=== PATIENT | female | born 1995 | race Caucasian/White ===

== ENCOUNTER 2018-10-17 20:46 | Emergency (ER) | payer SELFPAY ==
[2018-10-17] MEDS ORDERED: DEXAMETHASONE 4 MG/ML VIAL ONE (21:48)
[2018-10-17] MEDS ORDERED: DIPHENHYDRAMINE 50 MG/ML VIAL ONE (21:48)
[2018-10-17] MEDS ORDERED: FAMOTIDINE 20 MG/2 ML VIAL IV ONE (21:49)
[2018-10-17] MEDS ORDERED: NA CHLORIDE 0.9% 1,000 ML ONE (21:49)
--- NOTE | 2018-10-17 22:57 | ER ---
Nurse's Notes [facility] Name: Meagan Graff Age: 23 yrs Sex: Female : 1995 Arrival Date: 10/17/2018 Time: 20:49 Bed 15 Private MD: Diagnosis: Rash and other nonspecific skin eruption Presentation: 10/17 20:57 Presenting complaint: Patient states: rash and hives since yesterday morning. pt c/o ak1 body aches and throat pain today. Transition of care: patient was not received from another setting of care. Onset of symptoms was October 16, 2018. Risk Assessment: Do you want to hurt yourself or someone else? Patient reports no desire to harm self or others. Initial Sepsis Screen: Does the patient meet any 2 criteria? No. Patient's initial sepsis screen is negative. Does the patient have a suspected source of infection? No. Patient's initial sepsis screen is negative. Care prior to arrival: Benadryl at 1100. 20:57 Method Of Arrival: Ambulatory ak1 20:57 Acuity: DEVORAH 4 ak1 Triage Assessment: 20:56 General: Appears in no apparent distress. Behavior is calm, cooperative. Pain: ak1 Complains of pain in boday aches. 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 - Social history:: Smoking status: Patient uses tobacco products, smokes one-half pack cigarettes per day. - Ebola Screening: : No symptoms or risks identified at this time. Screenin:59 Abuse screen: Denies threats or abuse. Denies injuries from another. Nutritional ak1 screening: No deficits noted. Tuberculosis screening: No symptoms or risk factors identified. Fall Risk None identified. Assessment: 21:20 General: Appears in no apparent distress. uncomfortable, Behavior is calm, cooperative, jb4 appropriate for age. Pain: Complains of pain in right foot and left foot Pain does not radiate. Pain currently is 6 out of 10 on a pain scale. Neuro: Level of Consciousness is awake, alert, obeys commands, Oriented to person, place, time, situation. Cardiovascular: Heart tones S1 S2 present. Respiratory: Airway is patent Respiratory effort is even, unlabored, Respiratory pattern is regular, symmetrical. GI: No signs and/or symptoms were reported involving the gastrointestinal system. : No signs and/or symptoms were reported regarding the genitourinary system. EENT: Throat is clear is reddened. Derm: Skin is intact, Skin is pink, warm \T\ dry. Rash noted that is itchy, red, raised, urticaria. Musculoskeletal: Circulation, motion, and sensation intact. 22:18 Reassessment: Patient appears in no apparent distress at this time. Patient and/or jb4 family updated on plan of care and expected duration. Pain level reassessed. Patient is alert, oriented x 3, equal unlabored respirations, skin warm/dry/pink. Pt reports a decrease in itching. Patient states feeling better. Patient states symptoms have improved. 23:07 Reassessment: Patient appears in no apparent distress at this time. Patient and/or jb4 family updated on plan of care and expected duration. Pain level reassessed. Patient is alert, oriented x 3, equal unlabored respirations, skin warm/dry/pink. Vital Signs: 20:56 BP 118 / 77; Pulse 111; Resp 16; Temp 97.8(TE); Pulse Ox 99% on R/A; Weight 68.04 kg ak1 (R); Height 5 ft. 2 in. (157.48 cm) (R); Pain 6/10; 22:18 BP 100 / 53; Pulse 92; Resp 16; Pulse Ox 100% on R/A; jb4 22:45 BP 113 / 69; Pulse 88; Resp 16; Pulse Ox 100% on R/A; jb4 20:56 Body Mass Index 27.44 (68.04 kg, 157.48 cm) ak1 ED Course: 20:49 Patient arrived in ED. ds1 20:56 Arm band placed on Patient placed in an exam room, Patient notified of wait time. ak1 20:59 Triage completed. ak1 21:00 Nikhil Patel PA is PHCP. [facility] 21:00 Mihai Alba MD is Attending Physician. [facility] 21:18 Davon Tinsley, NICOLA is Primary Nurse. jb4 21:23 Patient has correct armband on for positive identification. Bed in low position. Call jb4 light in reach. Side rails up X 1. Pulse ox on. NIBP on. 21:40 No provider procedures requiring assistance completed. Inserted saline lock: 22 gauge jb4 in right antecubital area, using aseptic technique. Blood collected. 23:09 IV discontinued, intact, bleeding controlled. jb4 Administered Medications: 21:45 Drug: NS 0.9% 1000 ml Route: IV; Rate: 1 bolus; Site: right antecubital; jb4 22:30 Follow up: Response: No adverse reaction; IV Status: Completed infusion jb4 21:46 Drug: Decadron - Dexamethasone 10 mg Route: IVP; Site: right antecubital; jb4 22:17 Follow up: Response: No adverse reaction jb4 21:47 Drug: Pepcid 20 mg Route: IVP; Site: right antecubital; jb4 22:17 Follow up: Response: No adverse reaction jb4 21:48 Drug: diphenhydrAMINE 25 mg Route: IVP; Site: right antecubital; jb4 22:17 Follow up: Response: No adverse reaction jb4 Outcome: 22:57 Discharge ordered by MD. linares 23:09 Discharged to home ambulatory, with family. jb4 23:09 Condition: stable 23:09 Discharge instructions given to patient, Instructed on discharge instructions, follow up and referral plans. medication usage, Demonstrated understanding of instructions, follow-up care, medications, Prescriptions given X 3. 23:10 Patient left the ED. jb4 Signatures: Nikhil Patel PA PA jmm Sanford, Demi ds1 Adriane Jorgensen RN RN ak1 Davon Tinsley RN RN jb4
--- NOTE | 2018-10-17 22:57 | EDPHYS ---
Physician Documentation [facility] Name: Meagan Graff Age: 23 yrs Sex: Female : 1995 Arrival Date: 10/17/2018 Time: 20:49 Bed 15 Private MD: ED Physician Mihai Alba HPI: 10/17 21:25 This 23 yrs old Female presents to ER via Ambulatory with complaints of Rash, jmm Pain All Over. 21:25 The patient's rash thought to be caused by an unknown cause. The rash is located on the jmm body diffusely. Onset: The symptoms/episode began/occurred gradually, 1 day(s) ago. Associated signs and symptoms: Pertinent positives: itching, Pain Pertinent negatives: difficulty breathing, fever, swelling of lips, swelling of throat, swelling of tongue, vomiting, wheezing. Patient denies any known allergies. Denies vomiting, denies shortness of breath. 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 - Social history:: Smoking status: Patient uses tobacco products, smokes one-half pack cigarettes per day. - Ebola Screening: : No symptoms or risks identified at this time. ROS: 21:25 Constitutional: Negative for fever, chills, and weight loss, Cardiovascular: Negative jm for chest pain, palpitations, and edema, Respiratory: Negative for shortness of breath, cough, wheezing, and pleuritic chest pain. 21:25 Skin: Positive for rash. 21:25 All other systems are negative. Exam: 21:25 Head/Face: atraumatic. Chest/axilla: Normal chest wall appearance and motion. jmm Cardiovascular: Regular rate and rhythm. No edema appreciated Respiratory: Normal respirations, no respiratory distress appreciated Abdomen/GI: Non distended, soft 21:25 Constitutional: The patient appears in no acute distress, alert, awake. 21:25 ENT: no pharyngeal edema is appreciated. 21:25 Skin: diffuse erythematous rash is noted to the back extremities. . 21:25 Neuro: Orientation: is normal, Mentation: is normal, Memory: is normal. 21:25 Psych: Behavior/mood is pleasant, cooperative. Vital Signs: 20:56 BP 118 / 77; Pulse 111; Resp 16; Temp 97.8(TE); Pulse Ox 99% on R/A; Weight 68.04 kg ak1 (R); Height 5 ft. 2 in. (157.48 cm) (R); Pain 6/10; 22:18 BP 100 / 53; Pulse 92; Resp 16; Pulse Ox 100% on R/A; jb4 22:45 BP 113 / 69; Pulse 88; Resp 16; Pulse Ox 100% on R/A; jb4 20:56 Body Mass Index 27.44 (68.04 kg, 157.48 cm) ak1 MDM: 21:20 Patient medically screened. [facility] 22:56 Data reviewed: vital signs, nurses notes. Counseling: I had a detailed discussion with [facility] the patient and/or guardian regarding: the historical points, exam findings, and any diagnostic results supporting the discharge/admit diagnosis, the need for outpatient follow up, to return to the emergency department if symptoms worsen or persist or if there are any questions or concerns that arise at home. 22:56 Data interpreted: Pulse oximetry: on room air is 100 %. Interpretation: normal. [facility] 10/17 21:25 Order name: Saline Lock; Complete Time: 21:38 [facility] Administered Medications: 21:45 Drug: NS 0.9% 1000 ml Route: IV; Rate: 1 bolus; Site: right antecubital; 4 22:30 Follow up: Response: No adverse reaction; IV Status: Completed infusion [facility] 21:46 Drug: Decadron - Dexamethasone 10 mg Route: IVP; Site: right antecubital; jb4 22:17 Follow up: Response: No adverse reaction jb4 21:47 Drug: Pepcid 20 mg Route: IVP; Site: right antecubital; jb4 22:17 Follow up: Response: No adverse reaction [facility] 21:48 Drug: diphenhydrAMINE 25 mg Route: IVP; Site: right antecubital; jb4 22:17 Follow up: Response: No adverse reaction [facility] Disposition: 10/18 05:03 Co-signature as Attending Physician, Mihai Alba MD I agree with the assessment and 4 plan of care. Disposition: 10/17/18 22:57 Discharged to Home. Impression: Rash and other nonspecific skin eruption. - Condition is Stable. - Discharge Instructions: Rash. - Prescriptions for Elimite 5 % Topical Cream - apply 1 application by TOPICAL route one time Wash after 12 hours.; 60 gram. Hydroxyzine HCl 25 mg Oral Tablet - take 1 tablet by ORAL route every 6 hours As needed; 30 tablet. Prednisone 20 mg Oral Tablet - take 3 tablet by ORAL route once daily for 5 days; 15 tablet. - Medication Reconciliation Form, Thank You Letter, Antibiotic Education, Prescription Opioid Use form. - Follow up: Private Physician; When: 2 - 3 days; Reason: Recheck today's complaints, Continuance of care, Re-evaluation by your physician. Signatures: Nikhil Patel PA PA jmm Krenek, Amber, RN RN ak1 Davon Tinsley RN RN jb4 Mihai Alba MD MD tw4 Corrections: (The following items were deleted from the chart) 10/17 23:10 22:57 10/17/2018 22:57 Discharged to Home. Impression: Rash and other nonspecific skin jb4 eruption. Condition is Stable. Forms are Medication Reconciliation Form, Thank You Letter, Antibiotic Education, Prescription Opioid Use. Follow up: Private Physician; When: 2 - 3 days; Reason: Recheck today's complaints, Continuance of care, Re-evaluation by your physician. vijay
[2018-10-18 00:36] VITALS: TEMP 97.8
[2018-10-18 00:37] VITALS: O2SAT 100
[2018-10-18 00:39] VITALS: BP 113/69
== END 2018-10-17 23:10 | disposition home or self-care (01) ==
LOC: ER 20:46
DX: R21 Rash and other nonspecific skin eruption (principal); F17.210 Nicotine dependence, cigarettes, uncomplicated
CPT/HCPCS: 96361; 96374; 96375; 99284; J7030

== ENCOUNTER 2019-04-03 17:14 | Emergency (ER) | payer SELFPAY ==
--- OUTSIDE RECORDS SUMMARY | 2019-04-03 17:17 | XMS REPORT ---
:1995 [facility] Address [address] [place] [address] Dr. Gutiérrez. [address] [place] [id number] Care Team Providers Name Role Phone Unavailable Unavailable Unavailable Problems This patient has no known problems. Allergies, Adverse Reactions, Alerts This patient has no known allergies or adverse reactions. Medications This patient has no known medications.
--- NOTE | 2019-04-03 17:51 | EDPHYS ---
Physician Documentation [facility] Name: Meagan Graff Age: 24 yrs Sex: Female : 1995 Arrival Date: 04/03/2019 Time: 17:15 Bed 5 Private MD: ED Physician Wilfred Anderson HPI: 04/03 17:39 This 24 yrs old Female presents to ER via Ambulatory with complaints of jr8 Vaginal Pain - Unk wks preg. 17:39 Patient came to ED at the request of her friend. Patient has not had menstrual period jr8 for over a year. Knows she is but has had no care and does not know how far a long. Has been having two days of intermittent sporadic contraction like pain without rhythmic form. Denies clear fluid leaking, discharge, bleeding . 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 - Social history:: Smoking status: Patient uses tobacco products, smokes one-half pack cigarettes per day. - Ebola Screening: : Patient negative for fever greater than or equal to 101.5 degrees Fahrenheit, and additional compatible Ebola Virus Disease symptoms Patient denies exposure to infectious person Patient denies travel to an Ebola-affected area in the 21 days before illness onset No symptoms or risks identified at this time. ROS: 17:39 ENT: Negative for injury, pain, and discharge, Neck: Negative for injury, pain, and jr8 swelling, Cardiovascular: Negative for chest pain, palpitations, and edema, Respiratory: Negative for shortness of breath, cough, wheezing, and pleuritic chest pain, Abdomen/GI: Negative for abdominal pain, nausea, vomiting, diarrhea, and constipation, Back: Negative for injury and pain, MS/Extremity: Negative for injury and deformity, Skin: Negative for injury, rash, and discoloration, Neuro: Negative for headache, weakness, numbness, tingling, and seizure. 17:39 : Positive for pelvic pain, Negative for urinary symptoms, vaginal bleeding, vaginal discharge, vaginal itching. Exam: 17:39 Eyes: Pupils equal round and reactive to light, extra-ocular motions intact. Lids and jr8 lashes normal. Conjunctiva and sclera are non-icteric and not injected. Cornea within normal limits. Periorbital areas with no swelling, redness, or edema. ENT: Nares patent. No nasal discharge, no septal abnormalities noted. Tympanic membranes are normal and external auditory canals are clear. Oropharynx with no redness, swelling, or masses, exudates, or evidence of obstruction, uvula midline. Mucous membranes moist. Neck: Trachea midline, no thyromegaly or masses palpated, and no cervical lymphadenopathy. Supple, full range of motion without nuchal rigidity, or vertebral point tenderness. No Meningismus. Cardiovascular: Regular rate and rhythm with a normal S1 and S2. No gallops, murmurs, or rubs. Normal PMI, no JVD. No pulse deficits. Respiratory: Lungs have equal breath sounds bilaterally, clear to auscultation and percussion. No rales, rhonchi or wheezes noted. No increased work of breathing, no retractions or nasal flaring. Back: No spinal tenderness. No costovertebral tenderness. Full range of motion. Skin: Warm, dry with normal turgor. Normal color with no rashes, no lesions, and no evidence of cellulitis. MS/ Extremity: Pulses equal, no cyanosis. Neurovascular intact. Full, normal range of motion. Neuro: Awake and alert, GCS 15, oriented to person, place, time, and situation. Cranial nerves II-XII grossly intact. Motor strength 5/5 in all extremities. Sensory grossly intact. Cerebellar exam normal. Normal gait. 17:39 Abdomen/GI: Inspection: gravid appearance, is noted, Bowel sounds: active, all quadrants, Palpation: abdomen is soft and non-tender, in all quadrants, Indicators: McBurney's point is not tender, Cerda's sign is negative, Rovsing's sign is negative, Liver: tenderness, is not appreciated, fetus felt moving and kicking . 17:48 : Pelvic Exam: External exam: No bleeding, discharge, or fluid leaking noted. No jr8 noted , the nurse was present for the exam. Vital Signs: 17:30 BP 102 / 56; Pulse 78; Resp 19; Temp 98.8; Pulse Ox 100% on R/A; Weight 68.04 kg; aj Height 5 ft. 2 in. (157.48 cm); 17:30 Body Mass Index 27.44 (68.04 kg, 157.48 cm) aj MDM: 17:32 Patient medically screened. jr8 17:39 Data reviewed: vital signs, nurses notes, and as a result, I will discharge patient. jr8 Data interpreted: Pulse oximetry: on room air is 100 %. Interpretation: normal. Counseling: I had a detailed discussion with the patient and/or guardian regarding: the historical points, exam findings, and any diagnostic results supporting the discharge/admit diagnosis, the need for outpatient follow up, an OB/Gyne specialist, to return to the emergency department if symptoms worsen or persist or if there are any questions or concerns that arise at home. ED course: Discussed with patient that there is no emergent process noted on physical exam or vitals at this time. Will d/c from ED and send to L\T\D for toco monitoring and further assessment of fetus . Administered Medications: No medications were administered Disposition: 04/04 08:15 Co-signature as Attending Physician, Wiflred Anderson MD I agree with the assessment and [facility] plan of care. Disposition: 04/03/19 17:51 Discharged to Other. Impression: Primary inadequate contractions. - Condition is Stable. - Discharge Instructions: Augmentation of Labor. - Medication Reconciliation Form, Thank You Letter, Antibiotic Education, Prescription Opioid Use form. - Follow up: Private Physician; When: Upon discharge from the Emergency Department; Reason: Recheck today's complaints, Continuance of care, Re-evaluation by your physician. - Problem is new. - Symptoms have improved. Signatures: Zara Gandara RN RN aj1 Michelle Castro RN RN aj Anderson, Corey, MD MD cha Roszak, Josh, PA PA jr8 Corrections: (The following items were deleted from the chart) 04/03 17:55 17:51 04/03/2019 17:51 Discharged to Other. Impression: Primary inadequate aj1 contractions. Condition is Stable. Forms are Medication Reconciliation Form, Thank You Letter, Antibiotic Education, Prescription Opioid Use. Follow up: Private Physician; When: Upon discharge from the Emergency Department; Reason: Recheck today's complaints, Continuance of care, Re-evaluation by your physician. Problem is new. Symptoms have improved. jr8
--- NOTE | 2019-04-03 17:51 | ER ---
Nurse's Notes [facility] Name: Meagan Graff Age: 24 yrs Sex: Female : 1995 Arrival Date: 04/03/2019 Time: 17:15 Bed 5 Private MD: Diagnosis: Primary inadequate contractions Presentation: 04/03 17:28 Presenting complaint: Patient states: Vaginal pain for 2 weeks. Patient is and aj her LMP was March of last year. Denies vaginal discharge. Transition of care: patient was not received from another setting of care. Onset of symptoms was March 17, 2019. Risk Assessment: Do you want to hurt yourself or someone else? Patient reports no desire to harm self or others. Initial Sepsis Screen: Does the patient meet any 2 criteria? No. Patient's initial sepsis screen is negative. Does the patient have a suspected source of infection? No. Patient's initial sepsis screen is negative. Care prior to arrival: None. 17:28 Method Of Arrival: Ambulatory aj 17:28 Acuity: DEVORAH 3 aj Triage Assessment: 17:30 General: Appears in no apparent distress. comfortable, Behavior is calm, cooperative, aj appropriate for age. Pain: Complains of pain in pelvis. Neuro: Level of Consciousness is awake, alert, obeys commands, Oriented to person, place, time, situation, Appropriate for age. Respiratory: Airway is patent Respiratory effort is even, unlabored, Respiratory pattern is regular, symmetrical. Derm: Skin is intact, is healthy with good turgor, Skin is pink, warm \T\ dry. normal. 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 - Social history:: Smoking status: Patient uses tobacco products, smokes one-half pack cigarettes per day. - Ebola Screening: : Patient negative for fever greater than or equal to 101.5 degrees Fahrenheit, and additional compatible Ebola Virus Disease symptoms Patient denies exposure to infectious person Patient denies travel to an Ebola-affected area in the 21 days before illness onset No symptoms or risks identified at this time. Screenin:40 Abuse screen: Denies threats or abuse. Denies injuries from another. Nutritional aj1 screening: No deficits noted. Tuberculosis screening: No symptoms or risk factors identified. 17:53 Fall Risk None identified. aj1 Assessment: 17:40 General: Appears in no apparent distress. comfortable, Behavior is calm, cooperative, aj1 appropriate for age. Pain: Complains of pain in right lower quadrant, left lower quadrant and pelvis. Neuro: Level of Consciousness is awake, alert, obeys commands, Oriented to person, place, time, situation. Cardiovascular: Patient's skin is warm and dry. Respiratory: Airway is patent Respiratory effort is even, unlabored, Respiratory pattern is regular, symmetrical. GI: No signs and/or symptoms were reported involving the gastrointestinal system. : Reports vaginal pain and pressure, back pain. Patient states that her last period was March 2018. EENT: No signs and/or symptoms were reported regarding the EENT system. Derm: Skin is pink, warm \T\ dry. normal. Musculoskeletal: Circulation, motion, and sensation intact. Vital Signs: 17:30 BP 102 / 56; Pulse 78; Resp 19; Temp 98.8; Pulse Ox 100% on R/A; Weight 68.04 kg; aj Height 5 ft. 2 in. (157.48 cm); 17:30 Body Mass Index 27.44 (68.04 kg, 157.48 cm) aj ED Course: 17:15 Patient arrived in ED. as 17:30 Triage completed. aj 17:30 Arm band placed on left wrist. Patient placed in an exam room. aj 17:32 Matt Rajput PA is PHCP. jr8 17:32 Wilfred Anderson MD is Attending Physician. jr8 17:40 Zara Gandara, RN is Primary Nurse. aj1 17:40 Patient has correct armband on for positive identification. aj1 17:40 No provider procedures requiring assistance completed. aj1 17:53 Patient did not have IV access during this emergency room visit. aj1 Administered Medications: No medications were administered Outcome: 17:51 Discharge ordered by . jr8 17:53 Discharged to labor and delivery after being evaluated by KIRIT Grady aj1 17:54 Condition: stable aj1 17:54 Discharge instructions given to patient, Instructed on need for evaluation by labor and delivery 17:55 Patient left the ED. aj1 Signatures: Zara Gandara RN RN aj1 Michelle Castro RN RN Hortencia Weinberg Josh, PA PA jr8
[2019-04-03 18:40] VITALS: BP 102/56; TEMP 98.8; O2SAT 100
== END 2019-04-03 17:55 | disposition home or self-care (01) ==
LOC: ER 17:14
DX: O62.0 Primary inadequate contractions (principal); O99.330 Smoking (tobacco) complicating pregnancy, unspecified trimester; F17.210 Nicotine dependence, cigarettes, uncomplicated; Z3A.00 Weeks of gestation of pregnancy not specified
CPT/HCPCS: 99281

== ENCOUNTER 2019-04-26 17:25 | Inpatient (IN) | payer SELFPAY ==
[2019-04-26] MEDS ORDERED: Ringers Lactate 1,000 ML IV PRN (17:38)
--- OUTSIDE RECORDS SUMMARY | 2019-04-26 17:46 | XMS REPORT ---
:1995 [facility] Address [address] [place] [address] Dr. Gutiérrez. [address] [place] [id number] Care Team Providers Name Role Phone Unavailable Unavailable Unavailable Problems This patient has no known problems. Allergies, Adverse Reactions, Alerts This patient has no known allergies or adverse reactions. Medications This patient has no known medications.
[2019-04-26] MEDS ORDERED: Ringers Lactate 1,000 ML IV SCH (18:00)
[2019-04-26] MEDS ORDERED: IBUPROFEN 200 MG TAB PO PRN (18:01)
[2019-04-26] MEDS ORDERED: ACETAMINOPHEN 500 MG TAB PO PRN (18:01)
[2019-04-26] MEDS ORDERED: LIDOCAINE 1% MPF 30 ML VIAL ONE (18:04)
--- NOTE | 2019-04-26 18:05 | P.BOP ---
Preoperative diagnosis: IUP, no care, advanced labor Postoperative diagnosis: same, non-sterile delivery by nurse Primary procedure: repair of 2 degree perineal laceration Specimen: less than 300ml Anesthesia: Local Complications: None Transferred to: Other (273) Condition: Good
[2019-04-26] MEDS ORDERED: KETOROLAC 30 MG/ML INJ ONE (18:07)
[2019-04-26 18:19] LABS: RPR Titer ND
[2019-04-26 18:22] LABS: Urine Appearance CLEAR; Urine Bilirubin NEGATIVE (NEG); Urine Blood NEGATIVE (NEG); Urine Color YELLOW; Urine Glucose NEGATIVE (NEG); Urine Protein 1+ (NEG); Urine Specific Gravity 1.015 (1.005-1.030); Urine Urobilinogen 0.2 mg/dL (0.2-1.0); Urine pH 7.5 (5.0-7.0)
[2019-04-26 18:22] LABS: Absolute Lymphocytes (CBC) 1.8 K/uL (0.7-4.9); Absolute Monocytes 0.9 K/uL (0.1-1.3); Absolute Neutrophil 13.4 K/uL (1.8-8.0); Basophils % 0.6 % (0-1.3); Eosinophils % 0.1 % (0-4.4); Hematocrit 35.6 % (36.0-45.0); Lymphocytes % 10.9 % (15.3-44.8); MPV 8.9 fL (7.6-11.3); Monocytes % 5.5 % (3.3-12.3); RBC Red Blood Cell Count 4.33 M/uL (3.86-4.86)
[2019-04-26 18:28] LABS: Barbiturates NEGATIVE (NEGATIVE); Benzodiazepines NEGATIVE (NEGATIVE); METHAMPHETAM NEGATIVE (NEGATIVE); Methadone NEGATIVE (NEGATIVE); Opiates NEGATIVE (NEGATIVE); Phencyclidine NEGATIVE (NEGATIVE); THC Cannibis POSITIVE (NEGATIVE)
[2019-04-26 18:30] VITALS: BMI 26.5
[2019-04-26 18:30] LABS: Urine Bacteria <20 /HPF (<20); Urine Culture Reflex Order NOT NEEDED; Urine Mucus 1+ /HPF (NONE SEEN); Urine RBC <5 /HPF (NONE SEEN)
[2019-04-26 18:32] LABS: Glucose Level 90 mg/dL (74-106)
[2019-04-26 18:35] LABS: Cocaine POSITIVE (NEGATIVE)
[2019-04-26] MEDS ORDERED: OXYTOCIN/LR 20 UNIT/1,000 ML BAG IV SCH (19:00)
[2019-04-26 21:52] LABS: RPR (Rapid Plasma Reagin) NON-REACT (NON-REACT)
--- NOTE | 2019-04-26 23:29 | PREOPHP ---
Date of Admission: 04/26/2019 History Of Present Illness: Ms. Graff is 24-year-old female 2, para 1-0-0-1, unk nown gestational age, who had not received care during this . She presents completely dilat ed in obvious active labor. She said contractions started approximately 3 a.m. this morning. Past Medical History: Includes 1 prior spontaneous vaginal delivery without complications. She rohit es any other hospitalizations, accidents, illnesses, injuries. Medications: She is on no medications on a regular basis. Social History: Does smoke 1 pack cigarettes per day. Allergies: HAS NO KNOWN ALLERGIES. Family History: Noncontributory. Review of Systems: She reports no recent cough, cold, fever, or chills. No recent nausea or vomiting. She denies any b reast lumps or breast knots. She denies any bowel or bladder issues. Infant has been active. Physical Examination: General: Now the patient delivered. Neck: Supple without adenopathy or thyromegaly. Lungs: Clear. Cardiac: Regular rate and rhythm without murmurs. Breasts: Not examined. Abdomen: Nontender. Pelvic: She delivered spontaneously on the bed before I arrived. The patient was then prepped and d raped. Cord blood was obtained. Placenta was spontaneously expelled and appeared to be intact. A m idline second-degree perineal laceration was noted, was repaired in the usual fashion with 3-0 Vicryl suture. Estimated total blood loss less than 300 cc. Extremities: No cyanosis, clubbing, edema. Impression: , unknown gestational age, probably close to term, delivered. Plan: As above. We will seek [employer] consult and do urine drug screen in addition to routin e lab work. SONIA/CHAYITO Voice ID: [id number]
[2019-04-27 16:44] VITALS: BP 131/82; TEMP 96.6
--- NOTE | 2019-04-30 08:57 | OP ---
Surgeon: Mickey Vaughn MD Ms. Graff is a 24-year-old female, 2 para 1-0-0-1 at unknown gestational age with no care, who presents to Labor and Delivery completely dilated. She had rapid delivery of a 5-pound 7-ounce female infant, 9 and 9, had a second-degree perineal laceration. The infant was delivered by the time I came to the unit. Cord blood was obtained. Placenta was spontaneously e xpelled and appeared to be intact. Intrauterine examination revealed no retained placental fragments . The laceration was repaired in the usual fashion with local infiltration of 1% Xylocaine and 3-0 V icryl suture. The patient tolerated procedures well. Estimated total blood loss was less than 300 c c. SONIA/CHAYITO Voice ID: [id number] Report ID: [id number]
--- NOTE | 2019-04-30 09:09 | DS ---
Date of Discharge: 04/27/2019 Final Hospital Discharge Diagnosis: Term , delivered. Complications: None. Procedures: Spontaneous controlled vaginal delivery of viable female , repair of second-degree perineal laceration with local infiltration of anesthesia. Hospital Course: The patient is a 24-year-old female, 2, para 1-0-0-1, unknown ges tational age. Had received no care. She presented to Labor and Delivery, complete. Rapidl y delivered a 5-pound 7-ounce female , 9 and 9. She was dismissed on the first postpartu m day, ambulatory, on a select diet with routine post vaginal delivery activity restrictions, to be s een back through [facility], to continue taking her vitamins. Lab work obtained during this hospital stay included admission hemoglobin and hematocrit of 11.7 and 35. 6, a glucose of 90. Urinalysis negative. Positive urine drug screen for cocaine and THC. HIV was n egative. RPR nonreactive. She is rubella immune. customer services manager consult will be obtained prior to dismissal as well as a report filed with CPS because of no care and positive urine drug scr een. SONIA/CHAYITO Voice ID: [id number] Report ID: [id number]
[2019-04-30 20:29] LABS: HBsAG Nonreactive (Nonreactive)
== END 2019-04-27 15:25 | disposition home or self-care (01) | DRG 806 ==
LOC: L&D 17:25 → 2ND-WC 17:39
PROVIDERS: ADMIT Specialist; ATTEND Specialist
PROC: 10E0XZZ Delivery of Products of Conception, External Approach (ICD-10-PCS; principal; 2019-04-26)
PROC: 0KQM0ZZ Repair Perineum Muscle, Open Approach (ICD-10-PCS; 2019-04-26)
DX: O70.1 Second degree perineal laceration during delivery (principal); O99.323 Drug use complicating pregnancy, third trimester; Z37.0 Single live birth; O99.334 Smoking (tobacco) complicating childbirth; F17.210 Nicotine dependence, cigarettes, uncomplicated; Z3A.00 Weeks of gestation of pregnancy not specified; F14.10 Cocaine abuse, uncomplicated; F12.10 Cannabis abuse, uncomplicated
CPT/HCPCS: 36415; 80307; 81001; 82947; 85025; 86592; 86762; 86900; 86901; 87340; G0433; J2590